=== PATIENT | male | born 1960 | race Caucasian/White ===

== ENCOUNTER 2017-03-20 20:05 | Emergency (ER) | payer BC ==
[2017-03-20] MEDS ORDERED: DIPH/PERTUSS(ACELL)/TETANUS VAC/PF 0.5 ML SYR (>=10YO) IM ONE (21:59)
[2017-03-20] MEDS ORDERED: LIDOCAINE 1%/EPINEPHRINE INJ 20 ML VIAL INJ ONE (21:59)
[2017-03-20] MEDS ORDERED: AMOXICILLIN TR/POT CLAVULANATE 500-125 MG TAB PO ONE (21:59)
[2017-03-20] MEDS ORDERED: ACETAMINOPHEN 325 MG TABLET PO ONE (22:00)
[2017-03-20] MEDS ORDERED: IBUPROFEN 600 MG TABLET PO ONE (22:00)
--- NOTE | 2017-03-20 22:00 | ER Document Report ---
ED General - General Chief Complaint: Dog Bite Stated Complaint: DOG BITE Time Seen by Provider: 03/20/17 21:35 Notes: Patient is a 56-year-old male who presents with multiple lacerations over his bilateral hands that he sustained after trying to break up a dog fight. States it was his own dog who bit his hands. Does describe the pain as a sharp, constant, aching pain to the affected areas. Nothing improves or worsens the pain. Denies any limited range of motion with any of the digits of his hand. He is uncertain when his last tetanus shot was given. His dog is up-to-date on its rabies vaccination. He has not seen his primary care doctor regarding today 's concerns. TRAVEL OUTSIDE OF THE [place] IN LAST 30 DAYS: No - Related Data Allergies/Adverse Reactions: No Known Allergies Allergy (Verified 03/20/17 22:31) Past Medical History - General Information source: Patient - Social History Smoking Status: Never Smoker Frequency of alcohol use: None Drug Abuse: None Lives with: Spouse/Significant other Family History: Reviewed & Not Pertinent Patient has suicidal ideation: No Patient has homicidal ideation: No Pulmonary Medical History: Reports: Hx Asthma - pediatric Renal/ Medical History: Denies: Hx Peritoneal Dialysis Past Surgical History: Reports: Hx Orthopedic Surgery - knee Review of Systems - Review of Systems Notes: Constitutional: Negative for fever. Eyes: Negative for visual changes. ENT: Negative for facial injury Cardiovascular: Negative for chest injury. Respiratory: Negative for shortness of breath. Gastrointestinal: Negative for abdominal injury. Genitourinary: Negative for genital injury Musculoskeletal: Negative for back injury. Skin: Positive for laceration/abrasions. Neurological: Negative for head injury. Physical Exam - Vital signs Vitals: Temp Pulse Resp BP Pulse Ox 98.3 F 97 16 148/94 H 98 03/20/17 20:10 03/20/17 20:10 03/20/17 20:10 03/20/17 20:10 03/20/17 20:10 Interpretation: Hypertensive Notes: PHYSICAL EXAMINATION: GENERAL: Well-appearing, well-nourished and in no acute distress. HEAD: Atraumatic, normocephalic. EYES: sclera anicteric, conjunctiva are normal. ENT: Moist mucous membranes. NECK: Normal range of motion LUNGS: Normal work of breathing HEART: 2+ radial pulses bilaterally EXTREMITIES: Patient has full flexion and extension against resistance at the PIP and MCP of the left thumb. Full deputy commissioner strength bilaterally. RMU sensory distribution intact. NEUROLOGICAL: No focal neurological deficits. Moves all extremities spontaneously and on command. PSYCH: Normal mood, normal affect. SKIN: Warm, Dry, normal turgor, there is a gaping 6 cm laceration over the thenar eminence of the left hand with exposure of tendons Course - Re-evaluation Re-evalutation: 03/20/17 22:01 Patient presents with dog bites to the bilateral hands sustained by his own dog. The dog has all rabies immunizations. The patient's tetanus will be updated. Augmentin prophylaxis will be initiated. There was a gaping laceration of the left hand over the thenar eminence with exposure of several tendons. However, patient has full flexion and extension both at the MCP and PIP of the thumb against resistance. No apparent tendon injury. This was cleaned and explored and due to its gaping nature too small sutures were placed for point the wound edges slightly close together but not complete closure given that this is a dog bite on the hand at high-risk for infection.At this time will discharge with return precautions and follow-up recommendations. Verbal discharge instructions given a the bedside and opportunity for questions given. Medication warnings reviewed. Patient is in agreement with this plan and has verbalized understanding of return precautions and the need for primary care follow-up in the next 24-72 hours. - Vital Signs Vital signs: Temp Pulse Resp BP Pulse Ox 97.8 F 80 16 148/92 H 94 03/20/17 22:45 03/20/17 22:45 03/20/17 20:10 03/20/17 22:45 03/20/17 22:45 Procedures - Laceration/Wound Repair Left Hand Time completed: 22:36 Wound length (cm): 6 Wound's Depth, Shape: Irregular, Contused tissue Laceration pre-procedure: Sterile PPE donned, Chloraprep applied, Shur-Clens applied Anesthetic type: 1% Lidocaine w/epi Volume Anesthetic (mLs): 1 Wound explored: Contaminated Irrigated w/ Saline (mLs): 1,000 Wound Debrided: Moderate Wound Repaired With: Sutures Suture Size/Type: 4:0 Number of Sutures: 2 Layer Closure?: No Post-procedure wound care: Sterile dressing applied Post-procedure NV exam normal: Yes Complications: No Discharge - Discharge Clinical Impression: Dog bite Qualifiers: Encounter type: initial encounter Qualified Code(s): W54.0XXA - Bitten by dog, initial encounter Condition: Good Disposition: HOME, SELF-CARE Additional Instructions: Please monitor very closely for any signs of infection from your dog bite including spreading redness from the area, pus from the wound, or worsening pain. Clean the area twice daily with soap and water and then apply topical antibiotic ointment. Please take all the antibiotics that you were prescribed until they are gone. Follow-up with your primary care physician as needed. Prescriptions: Amox Tr/Potassium Clavulanate [Augmentin 875-125 Tablet] 1 tab PO BID 5 Days
[2017-03-20 22:55] VITALS: BP 148/92
== END 2017-03-20 22:56 | disposition home or self-care (01) ==
LOC: ER 20:05
PROC: 0HQFXZZ Repair Right Hand Skin, External Approach (ICD-10-PCS; principal; 2017-03-20)
DX: S61.452A Open bite of left hand, initial encounter (principal); S61.451A Open bite of right hand, initial encounter; W54.0XXA Bitten by dog, initial encounter; Y93.K9 Activity, other involving animal care; Y92.009 Unspecified place in unspecified non-institutional (private) residence as the place of occurrence of the external cause; Z23 Encounter for immunization
CPT/HCPCS: 12002; 99283; 90471; 90715; J3490